=== PATIENT | male | born 1950 | race Hispanic/Latino ===

== ENCOUNTER 2017-07-03 06:13 | Day surgery (SDC) | payer MEDICARE ==
[~2017-07-03] VITALS: Ht 172.7 cm; Wt 67.6 kg
[~2017-07-03 06:13] MED LIST: EZET10TA26 PO; LANS30CA55 PO
[2017-07-03] MEDS: SODIUM CHLORIDE 0.9% 1000ML 1,000 ML IV ONE (07:00)
[2017-07-03 07:21] VITALS: BP 124/58
[2017-07-03 07:29] VITALS: BP 124/58
[2017-07-03] MEDS ORDERED: LIDOCAINE HCL 2% 20ML ONE (07:30)
[2017-07-03] MEDS ORDERED: GLYCOPYRROLATE 0.2 MG/ML 5 ML VIAL ONE (07:30)
[2017-07-03] MEDS ORDERED: PROPOFOL 10 MG/ML 20ML VIAL IV ONE ×2 (07:30→07:46)
[2017-07-03] MEDS ORDERED: FENTANYL CITRATE PF 50 MCG/1 ML 2ML VIAL ONE (07:30)
[2017-07-03 07:48] VITALS: BP 84/36
== END 2017-07-03 08:20 | disposition home or self-care (01) ==
LOC: ENDO 06:13 → DAH 06:13 → ENDO 08:20
PROVIDERS: ATTEND Internal Medicine Gastroenterology
DX: Z09 Encounter for follow-up examination after completed treatment for conditions other than malignant neoplasm (principal); K21.9 Gastro-esophageal reflux disease without esophagitis; E78.5 Hyperlipidemia, unspecified; Z87.19 Personal history of other diseases of the digestive system; Z98.890 Other specified postprocedural states; Z82.49 Family history of ischemic heart disease and other diseases of the circulatory system; Z12.11 Encounter for screening for malignant neoplasm of colon
CPT/HCPCS: A4606; G0105; J2704 ×2; J3010; J3490 ×2; J7030